=== PATIENT | male | born 1985 | race Caucasian/White ===

== ENCOUNTER 2023-11-06 17:39 | Emergency (ER) | payer BC ==
[2023-11-06 18:32] VITALS: BP 127/81; PULSE 90; RESP 18; TEMP 97.9; BMI 30.5
[2023-11-06] MEDS ORDERED: IBUPROFEN 600 MG TABLET (FP) PO ONE (21:44)
[2023-11-06] MEDS: IBUPROFEN 600 MG TABLET (FP) PO ONE (21:45)
== END 2023-11-06 22:45 | disposition home or self-care (01) ==
LOC: JERFT 17:39 → JER 17:39
PROC: 2W3QX1Z Immobilization of Right Lower Leg using Splint (ICD-10-PCS; principal; 2023-11-06)
DX: M25.571 Pain in right ankle and joints of right foot (principal); R22.31 Localized swelling, mass and lump, right upper limb; S89.301A Unspecified physeal fracture of lower end of right fibula, initial encounter for closed fracture; S82.51XA Displaced fracture of medial malleolus of right tibia, initial encounter for closed fracture; W01.0XXA Fall on same level from slipping, tripping and stumbling without subsequent striking against object, initial encounter
CPT/HCPCS: 73610-TC-RT-FY; 99283-25